=== PATIENT | female | born 2000 | race Two or more races ===

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

== ENCOUNTER 2023-07-15 11:12 | Emergency (ER) | payer MEDICAID ==
[~2023-07-15] VITALS: Ht 157.5 cm; Wt 65.5 kg
[2023-07-15 12:07] LABS: Urine Bacteria None Seen /hpf (None Seen)
[2023-07-15 12:15] LABS: Urine Blood Negative /uL (Negative); Urine Clarity Clear (Clear); Urine Color Yellow (Yellow); Urine Mucus FEW (None Seen); Urine Protein, UAD 1+ (Negative); Urine Specific Gravity 1.042 (1.001-1.035); Urine Urobilinogen 4 mg/dL (Negative); Urine WBC 1 /hpf (0 - 5)
[2023-07-15 12:17] LABS: Basophils # (auto) 0 10 ^3/uL (0-0.2); Basophils % (auto) 0.2 % (0.0-2.0); Eosinophils # (auto) 0 10 ^3/uL (0-0.8); Eosinophils % (auto) 0.1 % (0.0-7.0); Lymphocytes # (auto) 1.1 10 ^3/uL (0.4-5.4); Monocytes # (auto) 0.7 10 ^3/uL (0-1.3); Monocytes % (auto) 7.9 % (0.0-12.0)
[2023-07-15 12:19] LABS: Hematocrit 44.1 % (36.0-46.0); Hemoglobin 14.7 g/dL (12.2-16.2); Lymphocytes % (auto) 12.3 % (10.0-50.0); Mean Corpuscular Hemoglobin 26.7 pg (28.0-32.0); Mean Corpuscular Hgb Conc. 33.3 g/dL (32.0-36.0); Neutrophils # (auto) 7.1 10 ^3/uL (1.6-8.6); Neutrophils % (auto) 79.5 % (37.0-80.0); Red Blood Cells 5.52 10^6/uL (4.0-5.20)
[2023-07-15 12:35] LABS: Alanine Aminotransferase 21 U/L (7-40); Albumin 4.8 g/dL (3.2-4.8); Alkaline Phosphatase 83 U/L (46-116); Anion Gap 10 (5-15); Aspartate Aminotransferase < 8 U/L (13-40); BUN/Creatinine Ratio 12.2 (10.0-20.0); Bilirubin, Total 0.4 mg/dL (0.2-1.0); Blood Urea Nitrogen 10 mg/dL (9-23); Calcium 9.7 mg/dL (8.7-10.4); Carbon Dioxide 23 mmol/L (20-30); Chloride 108 mmol/L (98-107); Glucose 98 mg/dL (74-106); Lipase 25 U/L (12-53); Sodium 141 mmol/L (136-145)
[2023-07-15] MEDS: SODIUM CHLORIDE 0.9% 1,000 ML IV ONE (14:04)
[2023-07-15] MEDS: HYDROcodone-ACET 5/325MG TAB PO ONE (14:27)
[2023-07-15] MEDS: ONDANSETRON HCL 4 MG/2 ML VIAL IV ONE (14:28)
[2023-07-15] MEDS ORDERED: ZOFR4T PO (17:47)
[2023-07-15 18:02] VITALS: BP 117/81; PULSE 100; RESP 18; O2SAT 99
== END 2023-07-15 18:04 | disposition home or self-care (01) ==
LOC: ER 11:19
DX: R10.9 Unspecified abdominal pain (principal); R11.2 Nausea with vomiting, unspecified; R10.2 Pelvic and perineal pain; Z85.841 Personal history of malignant neoplasm of brain
CPT/HCPCS: 36415; 74176; 80053; 81001; 81025; 83605; 83690; 84484; 84702; 85025; 96361; 96374; 99285; J2405; J7030